=== PATIENT | male | born 1955 | race African-American/Black ===

== ENCOUNTER 2020-11-16 00:41 | Emergency (ER) | payer MEDICARE, MEDICAID ==
[~2020-11-16] VITALS: Ht 193 cm; Wt 102.0 kg
[~2020-11-16 00:41] MED LIST: ACET1TAB12 PO; ASPI-1160 PO; ATOR20TA PO; CLON1TAB PO; DIPH25CA83 PO; LITH150C PO; TRAZ150T78 MT; ZIPR40CA2 PO
[2020-11-16 01:29] VITALS: BP 135/98
[2020-11-16 02:17] LABS: BASOPHILS % 1.2 % (0.0-2.0); EOSINOPHILS % 3.1 % (0.0-5.0); HEMATOCRIT. 36.8 % (42.0-52.0); HEMOGLOBIN. 12.3 g/dL (14.0-18.0); LYMPHOCYTES % 26.4 % (20.0-50.0); MEAN CORPUSCULAR HEMOGLOBIN 29.9 pg (28.0-32.0); MEAN CORPUSCULAR VOLUME 89.1 fL (80.0-94.0); MEAN PLATELET VOLUME 8.9 fl (7.4-10.4); MONOCYTES % 8.9 % (2.0-8.0); NEUTROPHILS % 60.4 % (40.0-76.0); PLATELET 242 x1000/uL (130-400); RED BLOOD CELL COUNT 4.13 mill/uL (4.7-6.1)
[2020-11-16 02:38] LABS: CHLORIDE 110 mEq/L (98-107)
[2020-11-16] MEDS ORDERED: POTASSIUM CHLORIDE 20MEQ TABLET SR PO ONE (03:15)
== END 2020-11-16 04:08 | disposition home or self-care (01) ==
LOC: ER 00:51
DX: E87.6 Hypokalemia (principal); E11.9 Type 2 diabetes mellitus without complications; I10 Essential (primary) hypertension; Z79.899 Other long term (current) drug therapy
CPT/HCPCS: 36415; 80053; 85025; 99283

== ENCOUNTER 2020-11-26 18:29 | Emergency (ER) | payer MEDICARE, MEDICAID ==
[~2020-11-26] VITALS: Ht 185.4 cm; Wt 85.0 kg
[2020-11-26 19:42] LABS: BASOPHILS % 1.2 % (0.0-2.0); EOSINOPHILS % 2.6 % (0.0-5.0); HEMOGLOBIN. 12.5 g/dL (14.0-18.0); MEAN CORPUSCULAR HEMOGLOBIN 29.8 pg (28.0-32.0); MONOCYTES % 7.1 % (2.0-8.0); NEUTROPHILS % 65.1 % (40.0-76.0); PLATELET 197 x1000/uL (130-400); RED CELL DISTRIBUTION WIDTH 15.6 % (11.6-14.6)
[2020-11-26 19:47] LABS: CHLORIDE 108 mEq/L (98-107)
[2020-11-26 19:51] LABS: ETHANOL BLOOD 24 mg/dL
[2020-11-26] MEDS ORDERED: ASPIRIN 81MG TABLET PO ONE (20:45)
[2020-11-26] MEDS ORDERED: THIAMINE HCL 100MG TABLET PO ONE (20:45)
[2020-11-26 21:08] LABS: CLARITY URINE CLEAR (CLEAR); COLOR URINE YELLOW (YELLOW); KETONES URINE TRACE (NEGATIVE); LEUKOCYTE ESTERASE URINE NEGATIVE (NEGATIVE); NITRITE URINE NEGATIVE (NEGATIVE); OCCULT BLOOD URINE NEGATIVE (NEGATIVE); PH URINE 5.5 (4.5-8.0); PROTEIN URINE NEGATIVE (NEGATIVE); SPECIFIC GRAVITY URINE 1.028 (1.005-1.030); UROBILINOGEN URINE 0.2 E.U./dL (0.2-1.0)
[2020-11-26 21:26] LABS: *AMPHETAMINES SCREEN URINE NEGATIVE (NEGATIVE); *BARBITURATES SCREEN URINE NEGATIVE (NEGATIVE)
[2020-11-26 21:27] LABS: *BENZODIAZEPINES SCREEN URINE NEGATIVE (NEGATIVE); *COCAINE SCREEN URINE NEGATIVE (NEGATIVE); CANNABINOID URINE SCREEN NEGATIVE (NEGATIVE); METHADONE URINE SCREEN NEGATIVE (NEGATIVE); OPIATES URINE SCREEN NEGATIVE (NEGATIVE); PHENCYCLIDINE URINE SCREEN NEGATIVE (NEGATIVE)
== END 2020-11-26 22:49 | disposition left against medical advice (07) ==
LOC: ER 18:29 → CANBEDREQ 22:44 → ER 22:49
DX: R06.00 Dyspnea, unspecified (principal); R53.1 Weakness; R94.39 Abnormal result of other cardiovascular function study; F20.9 Schizophrenia, unspecified; F31.9 Bipolar disorder, unspecified; E78.00 Pure hypercholesterolemia, unspecified; E11.9 Type 2 diabetes mellitus without complications; F10.10 Alcohol abuse, uncomplicated; Y90.1 Blood alcohol level of 20-39 mg/100 ml; Z98.890 Other specified postprocedural states; Z88.8 Allergy status to other drugs, medicaments and biological substances
CPT/HCPCS: 36415; 71045; 80053; 80305; 80320; 81003; 83880; 84484; 85025; 93005; 99285; G0480

== ENCOUNTER 2020-11-27 02:51 | Emergency (ER) | payer MEDICARE, MEDICAID | END 2020-11-27 03:04 | disposition home or self-care (01) | LOC: ER 02:57 | DX: R53.1 Weakness (principal); F91.1 Conduct disorder, childhood-onset type; E11.9 Type 2 diabetes mellitus without complications; I10 Essential (primary) hypertension; Z88.3 Allergy status to other anti-infective agents; Z88.6 Allergy status to analgesic agent; Z79.82 Long term (current) use of aspirin; Z98.890 Other specified postprocedural states | CPT/HCPCS: 99281 ==

== ENCOUNTER 2020-11-27 04:00 | Emergency (ER) | payer MEDICARE, MEDICAID ==
[~2020-11-27] VITALS: Ht 185.4 cm; Wt 85.0 kg
[2020-11-27 04:13] VITALS: BP 124/61
== END 2020-11-27 05:30 | disposition home or self-care (01) ==
LOC: ER 04:00
DX: R07.9 Chest pain, unspecified (principal); F19.10 Other psychoactive substance abuse, uncomplicated; F91.1 Conduct disorder, childhood-onset type; E11.9 Type 2 diabetes mellitus without complications; I10 Essential (primary) hypertension; Z98.890 Other specified postprocedural states
CPT/HCPCS: 93005; 99283

== ENCOUNTER 2020-11-27 11:10 | Emergency (ER) | payer MEDICARE, MEDICAID ==
[~2020-11-27] VITALS: Ht 188 cm; Wt 82.0 kg
[2020-11-27 12:00] VITALS: BP 140/89
== END 2020-11-27 12:11 | disposition home or self-care (01) ==
LOC: ER 11:29
DX: M79.604 Pain in right leg (principal); M79.605 Pain in left leg; E11.9 Type 2 diabetes mellitus without complications; I10 Essential (primary) hypertension; F15.10 Other stimulant abuse, uncomplicated; Z79.899 Other long term (current) drug therapy
CPT/HCPCS: 99283

== ENCOUNTER 2020-11-27 17:23 | Emergency (ER) | payer MEDICARE, MEDICAID ==
[~2020-11-27] VITALS: Ht 185.4 cm; Wt 80.0 kg
[2020-11-27 17:31] VITALS: BP 172/83
== END 2020-11-27 17:44 | disposition left against medical advice (07) ==
LOC: ER 17:23
DX: Z53.21 Procedure and treatment not carried out due to patient leaving prior to being seen by health care provider (principal); R52 Pain, unspecified; E11.9 Type 2 diabetes mellitus without complications; I10 Essential (primary) hypertension; Z98.890 Other specified postprocedural states

== ENCOUNTER 2020-11-27 18:24 | Emergency (ER) | payer MEDICARE, MEDICAID ==
[~2020-11-27] VITALS: Ht 182.9 cm; Wt 78.0 kg
[2020-11-27 18:28] VITALS: BP 116/75
== END 2020-11-27 21:39 | disposition left against medical advice (07) ==
LOC: ER 18:24
DX: Z53.21 Procedure and treatment not carried out due to patient leaving prior to being seen by health care provider (principal); E11.9 Type 2 diabetes mellitus without complications; I10 Essential (primary) hypertension; Z88.3 Allergy status to other anti-infective agents; Z88.6 Allergy status to analgesic agent; Z98.890 Other specified postprocedural states